=== PATIENT | female | born 1940 | race Caucasian/White ===

== ENCOUNTER 2024-09-25 14:31 | Emergency (ER) | payer MEDICARE ==
[2024-09-25] MEDS: Lidocaine 1% 10 ML MDV INJECT ONE (15:14)
== END 2024-09-25 15:23 | disposition home or self-care (01) ==
LOC: LB.ED 14:31
DX: W45.8XXA Other foreign body or object entering through skin, initial encounter (principal); S60.551A Superficial foreign body of right hand, initial encounter
CPT/HCPCS: 99282; 99283; J2003